=== PATIENT | male | born 1955 | race American Indian/Alaskan Native ===

== ENCOUNTER 2020-04-20 10:43 | Outpatient (CLI) | payer BC, MEDICARE ==
--- NOTE | 2020-04-20 13:13 | Cat Scan Report ---
CT ABDOMEN AND PELVIS WITHOUT CONTRAST HISTORY: PROSTATE CANCER. COMPARISON: None. TECHNIQUE: CT images of the abdomen and pelvis were obtained without administration of intravenous co ntrast. All CT scans at this location are performed using CT dose reduction for ALARA by means of au tomated exposure control. FINDINGS: Lungs/bones: There is a 6 mm subpleural nodule in the medial right lung base on image #4 series #2. The lungs are otherwise clear. There is osteoblastic metastatic disease most prominently involving th e spine at T12 right of midline extending to the pedicle, L4 anteriorly, S1 anteriorly, and the left greater than right iliac wings near each respective SI joint posteriorly. No pathologic fracture iden tified. Abdomen/pelvis: The prostate is grossly enlarged measuring at least roughly 7 cm in maximal dimensio n, indenting the bladder base. The bladder itself shows smooth circumferential wall thickening and mi ld surrounding stranding. There is also considerable pathologic adenopathy involving the bilateral il iac chains and extending into the retroperitoneum. There is also bilateral inguinal adenopathy. For e xample, a left internal iliac lymph node measures 1.9 cm in short axis on image #143 of series 2 and a right external iliac lymph node measures 2 cm in short axis on image #149 of series 2. There is moderate left-sided hydronephrosis which tapers in the mid ureteral segment and appears to b e at least in part chronic given severe parenchymal thinning. There is also simple cyst formation in the kidneys. The liver, gallbladder, spleen, pancreas, adrenals, and proximal GI tract appear unremarkable. No pelvic free fluid or acute colonic abnormality identified. IMPRESSION: 1. Metastatic prostate carcinoma with extensive pathologic adenopathy and osteoblastic metastatic dis ease as described above. 2. Moderate left-sided hydronephrosis which appears to be chronic since there is severe parenchymal t hinning of the left kidney. Hydronephrosis tapers to the level of the mid left ureter. Signer Name: Carlyle Garcia MD Signed: 04/20/2020 1:12 PM Workstation Name: [id number]
--- NOTE | 2020-04-20 14:22 | Nuclear Medicine Report ---
NUCLEAR MEDICINE BONE SCAN, WHOLE BODY INDICATION / CLINICAL INFORMATION: PROSTATE CA C61. TECHNIQUE: 25.2 mCi of Tc-99m MDP were injected IV. Images were obtained of the whole body. COMPARISON: CT dated 04/20/20 FINDINGS: BONES: Multiple osseous lesions are present corresponding to sclerotic lesions noted on CT. Is a foca l lesion in the anterior left acetabulum L4, T12, posterior 10th rib distal sternum, and anterior rig ht 4th rib. JOINTS: Degenerative activity in the right midfoot/hindfoot. Mild bilateral shoulder and knee degener ative activity. SOFT TISSUES: No significant abnormality. KIDNEYS: No activity in the left kidney likely related to chronic hydronephrosis as seen on CT. ADDITIONAL FINDINGS: None. IMPRESSION: 1. Diffuse osseous metastatic disease corresponding to sclerotic lesions on CT. 2. No activity in the left kidney likely relating to chronic hydronephrosis. Signer Name: Salvatore Rice MD Signed: 04/20/2020 2:22 PM Workstation Name: [id number]
== END 2020-04-20 10:44 | disposition home or self-care (01) ==
LOC: NM 10:43
PROVIDERS: ATTEND Urology
DX: C61 Malignant neoplasm of prostate (principal); C79.51 Secondary malignant neoplasm of bone; R91.1 Solitary pulmonary nodule; N40.0 Benign prostatic hyperplasia without lower urinary tract symptoms; N13.30 Unspecified hydronephrosis; N28.1 Cyst of kidney, acquired; M17.0 Bilateral primary osteoarthritis of knee; M19.012 Primary osteoarthritis, left shoulder; M19.011 Primary osteoarthritis, right shoulder
CPT/HCPCS: 74176; 78306; A9503

== ENCOUNTER 2020-08-25 10:01 | Outpatient (CLI) | payer BC, MEDICARE ==
[2020-08-25] MEDS ORDERED: FUROSEMIDE 20 MG/2 ML INJ ONE (10:43)
[2020-08-25] MEDS ORDERED: FUROSEMIDE 20 MG/2 ML INJ IV SCH (11:00)
--- NOTE | 2020-08-25 12:22 | Nuclear Medicine Report ---
KIDNEY IMAGING MORPHOLOGY WITH VASCULAR FLOW AND FUNCTION, SINGLE STUDY WITH LASIX HISTORY: Malignant neoplasm of prostate. Evaluate renal function. Left hydronephrosis. COMPARISON: Correlation is made with the CT abdomen and pelvis 04/20/2020 TECHNIQUE: Following IV administration of Tc-99m-MAG3, sequential dynamic images of the kidneys were obtained in the posterior projection for 30 minutes. Following IV administration of Lasix, additiona l images were acquired for 20 minutes. Time activity whole kidney curves were analyzed. RADIOPHARMACEUTICAL: 5.5 mCi of Tc-99m-MAG3 MEDICATION: Lasix 20 mg iv FINDINGS: There is homogeneous distribution of the radiopharmaceutical within the renal cortex of right kidney. There is no appreciable uptake in the left kidney. DIFFERENTIAL FUNCTION: Right: 96% Left: 4% RIGHT: [id number] activity: 6 minutes, normal T1/2: 41.8 minutes, normal Ureter: No significantly abnormal activity. Normal caliber. Post-Lasix imaging: No significant abnormality in urinary excretion. LEFT: No appreciable uptake in the left kidney on nuclear medicine images. Additional Findings: None. IMPRESSION: There is normal uptake and excretion of the radiotracer in the right kidney. No obstruction. No appreciable flow or function of the left kidney as demonstrated on nuclear medicine. Split function measures 96% right kidney and 4% left kidney. Signer Name: Patrick Juárez Jr, MD Signed: 08/25/2020 12:18 PM Workstation Name: [id number]
== END 2020-08-25 10:02 | disposition home or self-care (01) ==
LOC: NM 10:01
PROVIDERS: ATTEND Urology
DX: C61 Malignant neoplasm of prostate (principal)
CPT/HCPCS: 78708; A9562; J1940